=== PATIENT | male | born 1965 | race Caucasian/White ===

== ENCOUNTER 2021-10-25 21:15 | Emergency (ER) | payer MEDICAID ==
[~2021-10-25] VITALS: Ht 167.6 cm; Wt 87.0 kg
[2021-10-25 23:54] LABS: BASOPHILS % 0.7 % (0.0-2.0); HEMATOCRIT. 36.1 % (42.0-52.0); LYMPHOCYTES % 30.6 % (20.0-50.0); MEAN CORPUSCULAR HEMOGLOBIN 33.2 pg (28.0-32.0); MEAN CORPUSCULAR VOLUME 92.4 fL (80.0-94.0); MEAN PLATELET VOLUME 9.5 fl (7.4-10.4); MONOCYTES % 7.8 % (2.0-8.0); NEUTROPHILS % 59.9 % (40.0-76.0); PLATELET 154 x1000/uL (130-400); RED CELL DISTRIBUTION WIDTH 12.4 % (11.6-14.6)
[2021-10-26 00:03] LABS: CHLORIDE 102 mEq/L (98-107)
[2021-10-26] MEDS ORDERED: MECL-159 MT (04:47)
[2021-10-26 05:00] VITALS: BP 113/62
== END 2021-10-26 05:16 | disposition home or self-care (01) ==
LOC: ER 21:15
DX: R42 Dizziness and giddiness (principal); R07.89 Other chest pain; M25.561 Pain in right knee; E11.9 Type 2 diabetes mellitus without complications
CPT/HCPCS: 36415; 71045; 80053; 84484; 85025; 93005; 93970; 99285

== ENCOUNTER 2022-01-16 23:20 | Emergency (ER) | payer MEDICAID ==
[~2022-01-16] VITALS: Ht 165.1 cm; Wt 82.0 kg
[~2022-01-16 23:20] MED LIST: MECL-159 MT
[2022-01-17 03:13] LABS: BASOPHILS % 0.8 % (0.0-2.0); EOSINOPHILS % 1.9 % (0.0-5.0); HEMATOCRIT. 39.6 % (42.0-52.0); HEMOGLOBIN. 13.5 g/dL (14.0-18.0); LYMPHOCYTES % 48.7 % (20.0-50.0); MEAN CORPUSCULAR HEMOGLOBIN 32.8 pg (28.0-32.0); MEAN CORPUSCULAR VOLUME 96.1 fL (80.0-94.0); MEAN PLATELET VOLUME 8.7 fl (7.4-10.4); MONOCYTES % 6.9 % (2.0-8.0); NEUTROPHILS % 41.7 % (40.0-76.0); PLATELET 159 x1000/uL (130-400); RED BLOOD CELL COUNT 4.12 mill/uL (4.7-6.1); RED CELL DISTRIBUTION WIDTH 13.7 % (11.6-14.6)
[2022-01-17] MEDS ORDERED: LIDOCAINE 5% PATCH TOP SCH (03:15)
[2022-01-17] MEDS ORDERED: ACETAMINOPHEN 325MG TABLET PO ONE (03:15)
[2022-01-17] MEDS ORDERED: GABAPENTIN 300MG CAPSULE PO ONE (03:15)
[2022-01-17] MEDS ORDERED: KETOROLAC 30MG/ML VIAL IV ONE (03:15)
[2022-01-17 03:16] LABS: CLARITY URINE CLEAR (CLEAR); COLOR URINE YELLOW (YELLOW); KETONES URINE NEGATIVE (NEGATIVE); LEUKOCYTE ESTERASE URINE NEGATIVE (NEGATIVE); NITRITE URINE NEGATIVE (NEGATIVE); OCCULT BLOOD URINE NEGATIVE (NEGATIVE); PROTEIN URINE NEGATIVE (NEGATIVE); SPECIFIC GRAVITY URINE 1.007 (1.005-1.030); UROBILINOGEN URINE 0.2 E.U./dL (0.2-1.0)
[2022-01-17 03:18] LABS: CHLORIDE 109 mEq/L (98-107)
[2022-01-17 03:20] LABS: INR 1.1; PROTHROMBIN TIME 11.3 sec (9.6-11.0)
[2022-01-17 03:27] LABS: ETHANOL BLOOD 256 mg/dL
[2022-01-17 03:28] LABS: *AMPHETAMINES SCREEN URINE NEGATIVE (NEGATIVE); *BARBITURATES SCREEN URINE NEGATIVE (NEGATIVE); *BENZODIAZEPINES SCREEN URINE NEGATIVE (NEGATIVE); *COCAINE SCREEN URINE NEGATIVE (NEGATIVE); CANNABINOID URINE SCREEN NEGATIVE (NEGATIVE); METHADONE URINE SCREEN NEGATIVE (NEGATIVE); OPIATES URINE SCREEN NEGATIVE (NEGATIVE); PHENCYCLIDINE URINE SCREEN NEGATIVE (NEGATIVE)
[2022-01-17] MEDS ORDERED: MULTIVITAMINS,THER W-MINERALS TABLET PO STA (03:33)
[2022-01-17] MEDS ORDERED: FOLIC ACID/VITAMIN B COMP W-C TABLET PO SCH (03:45)
[2022-01-17] MEDS ORDERED: MULTIVITAMINS,THER W-MINERALS TABLET PO NR (04:00)
[2022-01-17] MEDS ORDERED: IBUP-2028 MT (04:48)
[2022-01-17] MEDS ORDERED: TOPUD PO (04:48)
[2022-01-17] MEDS ORDERED: MULT-1146 MT (04:48)
[2022-01-17] MEDS ORDERED: GABA-532 MT (04:48)
[2022-01-17 05:20] VITALS: BP 105/62
== END 2022-01-17 05:26 | disposition home or self-care (01) ==
LOC: ER 23:20
DX: G89.29 Other chronic pain (principal); M25.511 Pain in right shoulder; G62.9 Polyneuropathy, unspecified; F10.10 Alcohol abuse, uncomplicated; I10 Essential (primary) hypertension; E11.9 Type 2 diabetes mellitus without complications; Y90.8 Blood alcohol level of 240 mg/100 ml or more; Z59.00 Homelessness unspecified; Z91.14 Patient's other noncompliance with medication regimen
CPT/HCPCS: 36415; 80053; 80305; 80320; 81003; 83690; 85025; 85610; 96374; 99284; J1885; G0480

== ENCOUNTER 2022-03-20 20:54 | Emergency (ER) | payer MEDICAID ==
[~2022-03-20] VITALS: Ht 167.6 cm; Wt 80.0 kg
[~2022-03-20 20:54] MED LIST changes: +GABA-532 MT; +IBUP-2028 MT; +MULT-1146 MT; +TOPUD PO
[2022-03-20 22:30] VITALS: BP 148/72
[2022-03-20] MEDS ORDERED: IBUPROFEN 600MG TABLET PO ONE (22:30)
[2022-03-20] MEDS ORDERED: IBUP-2029 MT (23:24)
== END 2022-03-21 00:07 | disposition home or self-care (01) ==
LOC: ER 20:54
DX: M23.8X1 Other internal derangements of right knee (principal); M25.511 Pain in right shoulder; I10 Essential (primary) hypertension; E11.9 Type 2 diabetes mellitus without complications
CPT/HCPCS: 73030; 73562; 99284